=== PATIENT | female | born 1955 | race Two or more races ===

== ENCOUNTER → 2019-09-12 | Outpatient (CLI) | payer MEDICAID | END | disposition home or self-care (01) | LOC: Rad HDHVI 14:47 | PROVIDERS: ATTEND Internal Medicine | DX: I08.3 Combined rheumatic disorders of mitral, aortic and tricuspid valves (principal); R01.1 Cardiac murmur, unspecified; R07.9 Chest pain, unspecified; E11.9 Type 2 diabetes mellitus without complications; I25.10 Atherosclerotic heart disease of native coronary artery without angina pectoris | CPT/HCPCS: 93306 ==

== ENCOUNTER → 2019-09-26 | Outpatient (CLI) | payer MEDICAID ==
[~2019-09-26] VITALS: Ht 154.9 cm; Wt 104.3 kg
== END | disposition home or self-care (01) ==
LOC: Rad HDHVI 09:18
PROVIDERS: ATTEND Internal Medicine
DX: I10 Essential (primary) hypertension (principal); E11.9 Type 2 diabetes mellitus without complications; E03.9 Hypothyroidism, unspecified
CPT/HCPCS: 78452; 93017; 96374; A9500